=== PATIENT | female | born 1955 | race Caucasian/White ===

== ENCOUNTER 2018-12-12 04:38 | Inpatient (IN) | payer MEDICAID, MEDICARE ==
[2018-12-12] MEDS ORDERED: Scopolamine 1.5 MG Transdermal Patch TOP SCH (05:30)
[2018-12-12] MEDS ORDERED: Celecoxib 200 MG Cap PO ONE (05:30)
[2018-12-12] MEDS ORDERED: Gabapentin 300 MG Cap PO ONE (05:30)
[2018-12-12] MEDS ORDERED: Acetaminophen 500 MG Tab PO ONE (05:30)
[2018-12-12] MEDS ORDERED: cefOXitin 2 GM in Sodium Chloride 0.9% 50 ML IV ONE (06:00)
[2018-12-12] MEDS ORDERED: Dextrose 5%-Lactated Ringers 1,000 ML IV SCH (06:00)
[2018-12-12] MEDS ORDERED: cefOXitin 2 GM Vial ONE (06:55)
[2018-12-12] MEDS ORDERED: fentaNYL 250 MCG/5 ML SDV ONE ×3 (07:01→10:54)
[2018-12-12] MEDS ORDERED: Glycopyrrolate 0.2 MG/ML 5 ML MDV ONE (07:01)
[2018-12-12] MEDS ORDERED: Propofol 200 MG/20 ML SDV ONE (07:01)
[2018-12-12] MEDS ORDERED: Dexamethasone 4 MG/ML SDV ONE (07:01)
[2018-12-12] MEDS ORDERED: Rocuronium 50 MG/5 ML Vial ONE (07:01)
[2018-12-12] MEDS ORDERED: Ondansetron 4 MG/2 ML SDV ONE (07:01)
[2018-12-12] MEDS ORDERED: Neostigmine Methylsulfate 1 MG/ML 5 ML Syringe ONE (07:01)
[2018-12-12] MEDS ORDERED: Succinylcholine 200 MG/10 ML MDV ONE (07:01)
[2018-12-12] MEDS ORDERED: Lactated Ringers 1,000 ML ONE (07:02)
[2018-12-12] MEDS ORDERED: Lidocaine 0.4%/D5W 2 GM/500 ML BAG IV SCH (07:15)
[2018-12-12] MEDS ORDERED: Ketamine 50 MG in Sodium Chloride 0.9% 49.5 ML IV SCH (07:15)
[2018-12-12] MEDS ORDERED: Lidocaine 2% 100 MG/5 ML Syringe IVPUSH SCH (07:15)
[2018-12-12] MEDS ORDERED: Ketamine 500 MG/5 ML MDV IV SCH (07:15)
[2018-12-12 10:10] LABS: HEMOGLOBIN A1C 7.2 % (4.5-6.2)
[2018-12-12] MEDS ORDERED: fentaNYL 100 MCG/2 ML SDV IVPUSH ONE (11:56)
[2018-12-12] MEDS ORDERED: hydrOXYzine HCl 100 MG/2 ML SDV IM ONE (11:56)
[2018-12-12] MEDS ORDERED: 50% Dextrose in Water 50 ML Syringe IVPUSH PRN (12:11)
[2018-12-12] MEDS ORDERED: HYDROmorphone 0.5 MG/0.5 ML Syringe IVPUSH PRN (12:11)
[2018-12-12] MEDS ORDERED: Glucagon,Human Recombinant 1 MG Vial IM PRN (12:11)
[2018-12-12] MEDS ORDERED: Labetalol 20 MG/4 ML Syringe IVPUSH PRN (12:11)
[2018-12-12] MEDS ORDERED: HYDROmorphone 1 MG/ML Syringe IV PRN (12:11)
[2018-12-12] MEDS ORDERED: diphenhydrAMINE 50 MG/ML SDV IVPUSH PRN (12:11)
[2018-12-12] MEDS ORDERED: Insulin Lispro 100 Unit/ML 3 ML KwikPen SUBCUT PRN (12:11)
[2018-12-12] MEDS ORDERED: hydrOXYzine HCl 100 MG/2 ML SDV IM PRN (12:11)
[2018-12-12] MEDS ORDERED: Naloxone 0.4 MG/ML SDV IV ONE (13:00)
[2018-12-12] MEDS: Gabapentin 250 MG/5 ML Solution ML 470 ML Bottle PO SCH ×2 (15:53→20:52)
[2018-12-12] MEDS: Acetaminophen Soln 650 MG/20.3 ML UD Cup PO SCH ×2 (15:53→22:19)
[2018-12-12] MEDS: Pantoprazole 40 MG Vial IVPUSH SCH (15:53)
[2018-12-12] MEDS: cefOXitin 2 GM in Sodium Chloride 0.9% 50 ML IV SCH ×2 (15:53→22:22)
[2018-12-12] MEDS: Lactated Ringers 1,000 ML IV SCH (18:29)
[2018-12-12] MEDS: Dextrose 5%-Lactated Ringers 1,000 ML IV SCH (18:29)
[2018-12-12] MEDS: MVI, Adult with Vitamin K 10 ML, Thiamine 200 MG, Chromium/Copper/Mang/Selen/Zn 1 ML in... IV SCH ×4 (18:30)
[2018-12-12] MEDS: Heparin Sodium 5,000 Units/ML Vial SUBCUT SCH (18:31)
[2018-12-12] MEDS: Ondansetron 4 MG/2 ML SDV IVPUSH PRN ×2 (18:37→21:15)
[2018-12-12] MEDS: Metoclopramide 10 MG/2 ML SDV IVPUSH PRN (22:10)
[2018-12-13] MEDS: Dextrose 5%-Lactated Ringers 1,000 ML IV SCH (01:54)
[2018-12-13] MEDS ORDERED: Iopamidol 612 MG/ML 50 ML SDV PO ONE (02:06)
[2018-12-13] MEDS: Ondansetron 4 MG/2 ML SDV IVPUSH PRN (02:49)
[2018-12-13] MEDS: cefOXitin 2 GM in Sodium Chloride 0.9% 50 ML IV SCH ×3 (03:20→16:43)
[2018-12-13] MEDS: Acetaminophen Soln 650 MG/20.3 ML UD Cup PO SCH ×2 (03:21→04:07)
[2018-12-13] MEDS: Metoclopramide 10 MG/2 ML SDV IVPUSH PRN (03:29)
--- NOTE | 2018-12-13 03:46 | CRLCR ---
Indication: Nandini-en-Y gastric bypass Technique: KUB 2 view obtained after administration of 50 cc oral Isovue-300 Comparison: None Findings/Impression: : Two films centered on the mid abdomen were obtained and demonstrate contrast material within the gastric pouch and small bowel. No evidence for oral contrast leak. A BOB drain projects in the left upper quadrant. Nonspecific bowel gas pattern. Dictated by Sudha Mariee MD @ Dec 13 2018 3:41AM Signed by Dr. Sudha Mariee @ Dec 13 2018 3:43AM
[2018-12-13] MEDS: Lactated Ringers 1,000 ML IV SCH (05:11)
[2018-12-13] MEDS: Heparin Sodium 5,000 Units/ML Vial SUBCUT SCH ×2 (05:14→18:06)
[2018-12-13] MEDS ORDERED: Ondansetron 4 MG Tab.DIS PO PRN (07:33)
[2018-12-13] MEDS ORDERED: Calcium Carbonate 500 MG Tab.Chew PO PRN (07:35)
--- NOTE | 2018-12-13 07:39 | OR ---
DATE OF PROCEDURE: 12/12/2018 SURGEON: Jason Priest MD PREOPERATIVE DIAGNOSIS: Morbid obesity. POSTOPERATIVE DIAGNOSES: 1. Morbid obesity. 2. Marked hepatomegaly. 3. Extreme thickening of omentum and mesentery limiting small bowel mobility. 4. Paraesophageal diaphragmatic hernia. 5. Mediastinal lipoma. OPERATIVE PROCEDURES: Diagnostic laparoscopy with: 1. Laparoscopic Nandini-en-Y gastric bypass with long limb gastroenterostomy (57462). 2. Issa-Cut needle liver biopsy (58510). 3. Small bowel resection to facilitate adequate mobility of the jejunojejunostomy (31570). 4. Repair of paraesophageal diaphragmatic hernia (84669). 5. Excision of mediastinal lipoma (40930). ANESTHESIA: General. PERSONNEL RESEARCH SCIENTIST: Julieta Zamudio PA-C. INDICATIONS FOR PROCEDURE: This is a 63-year-old female presenting with longstanding morbid obesity and increasingly significant comorbidities. After preoperative evaluation and discussion, she wished to proceed with a gastric bypass procedure. Potential risks including bleeding, infection, leaks from various GI tract closures, problems with bowel obstruction over time, as well as possibility of cardiopulmonary, septic, or hemorrhagic complications leading to were discussed, and the patient wishes to proceed. DETAILS OF PROCEDURE: The patient was taken to the operating room and placed in a supine position. After general endotracheal anesthesia was induced, she was converted to a lithotomy position and the abdomen prepped and draped. At 15 cm inferior and 5 cm left of xiphoid process, a transverse incision was made and the peritoneal cavity entered under direct vision with an Optiview trocar and inflated to 15 mmHg pressure with CO2. Laparoscope was reinserted. Bilateral transversus abdominis plane blocks were placed followed by 5 additional trocars. The patient was noted to have marked hepatomegaly and Issa-Cut needle liver biopsies were obtained from left lobe of liver. Minimal bleeding from biopsy sites was controlled with electrocautery. At this point, the omentum was retracted upward. This was noted to be strikingly thickened. This was eventually divided down to the level of the transverse colon and then away from the transverse colon for a total length of around 8 cm to facilitate mobility of the small bowel Nandini limb up to the pouch. The small bowel was then identified at the ligament of Treitz and traced out to 100 cm distal. At that point, the small bowel was noted to be strikingly immobile, also related to the marked thickening of the mesentery. After the initial division of the small bowel at the 100 cm point, roughly 12 cm of the biliopancreatic limb was then further resected by means of additional SMITA firing with the mesentery being divided with Harmonic scalpel. This would allow then to have marked mobility of the jejunojejunostomy. The small bowel was then traced out an additional 180 cm with [id number] enteroenterostomy was accomplished with internal firing of the Endo-SMITA 60 mm stapler. Common opening was then closed transversely with the same stapler, and the angles anastomosed and the mesenteric defect approximated with some 0 Ethibond suture, along with fibrin sealant. The divided end of the Nandini limb was then from the mesentery for a few centimeters, which allowed an antecolic positioning of the Nandini limb up to the area of the diaphragm and esophagogastric junction with limited amount of tension. The liver was then retracted anteriorly, and the patient was noted to have a moderate-sized paraesophageal diaphragmatic hernia with prolapse of some perigastric fat and fundus in a plane anterior to the course of the esophagus. This was reduced and the peritoneum overlying was incised and reflected downward. During the course of the dissection of the crura, the mediastinal lipoma was encountered which was excised, it was roughly the size of a ping-pong ball. The diaphragmatic hernia was then repaired with 0 Ethibond sutures, reinforced with PTFE pledgets in the anterior plane. Gastrointestinal catheter was then inflated to 15 mL and pulled up snugly against the EG junction. Gastric wall over the apex of the balloon was then marked with electrocautery and balloon catheter deflated and pulled up from the esophagus. The lesser omental tissue was then divided, allowing dissection behind the stomach, and the pouch formation was initiated with a transverse firing of the SMITA stapler at the level of the cauterized juan carlos in the gastric cardia. The pouch was then completed with additional firings of the SMITA staplers up to and through the angle of His. Upon completion of the pouch, both staple lines appeared to be intact. The anvil of a 25 mm EEA stapler was attached to [place] sump type tube and was taken out through a small opening in the gastric pouch. This allowed the anvil to be pulled down within the gastric pouch as well. The divided end of the Nandini limb was then opened and main body of the EEA stapler passed several centimeters into the lumen of small bowel, brought up the anvil and united with it, thus creating the gastrojejunostomy. Upon removal of stapler, double donuts of mucosa were noted within it. The small bowel was closed off with a vascular staple line. Gastrojejunostomy was reinforced with some 3-0 Vicryl seromuscular stitch, along with fibrin sealant. A leak test was accomplished with injection of 120 mL of air in the gastric pouch while it was submerged with cefoxitin-containing saline solution. A single Van-Jalloh drain was taken out through the left lateral trocar site and positioned adjacent to the gastrojejunostomy and from there up into the splenic fossa. The trocars were sequentially removed and the skin closed with 4-0 Vicryl skin stitch, which was also used to affix the drain. The patient was taken to the recovery room in satisfactory condition. Physician front end assistant, Julieta Zamudio, played an essential role in assisting in this case helping to position the patient, retract structures as needed as well as suturing, cutting sutures when indicated. Her presence improved patient safety and decreased operative time. Jason Priest MD /[id number]
[2018-12-13] MEDS: Acetaminophen 1,000 MG in Premix Bag 1 BAG IV SCH ×3 (09:41→19:32)
[2018-12-13] MEDS: Celecoxib 200 MG Cap PO SCH (09:41)
[2018-12-13] MEDS: Aspirin 81 MG Tab.EC PO SCH (09:43)
[2018-12-13] MEDS: amLODIPine 5 MG Tab PO SCH (09:43)
[2018-12-13] MEDS: Lisinopril 10 MG Tab PO SCH (09:43)
[2018-12-13] MEDS: SCOPOLAMINE PATCH CHECK TOP SCH (09:44)
--- NOTE | 2018-12-13 10:52 | PN ---
DATE OF SERVICE: 12/13/2018 SUBJECTIVE: Ramos is postop day 1. She had difficulty with nausea during the night. Her lidocaine was discontinued. She has a scopolamine patch on. She was given Reglan scheduled and Zofran. The nausea started after she took gabapentin. Blood sugars have been 188 and this morning was 183. REVIEW OF SYSTEMS: Remainder of review of systems negative for any pertinent positives and negatives. OBJECTIVE: GENERAL: Ramos Gurrola is a pleasant 63-year-old female. She is alert and orientated. VITAL SIGNS: TPR is 97.4, 71, 18. Blood pressure 166/52. HEENT: Negative. NECK: Supple. HEART: Regular rate and rhythm. LUNGS: Clear. ABDOMEN: Dressing dry and intact. Abdominal binder is on. BOB drain put out 280 mL of a pink serosanguineous drainage. EXTREMITIES: SCDs are on and there is no peripheral edema. ASSESSMENT: Diagnostic laparoscopy with: 1. Laparoscopic Nandini-en-Y gastric bypass surgery with long limb gastroenterostomy. 2. Issa-Cut needle liver biopsy. 3. Small bowel resection to facilitate adequate motility of the jejunojejunostomy. 4. Excision of mediastinal lipoma. Surgeon, Jason Priest MD. Date of surgery, 12/12/2018. PLAN: 1. Decrease IV to 100 mL per hour of lactated Ringer's. 2. Discontinue gabapentin. 3. IV Tylenol 1000 mg q.6 hours scheduled today. 4. Tums two q.2 hours p.r.n. heartburn. 5. Restart Norvasc (amlodipine). 6. Discontinue D5LR. 7. Good pulmonary toilet. 8. May shower. 9. We will evaluate p.r.n. or in a.m. Julieta Zamudio PA-C /[id number]
[2018-12-13] MEDS: MVI, Adult with Vitamin K 10 ML, Thiamine 200 MG, Chromium/Copper/Mang/Selen/Zn 1 ML in... IV SCH ×4 (16:42)
[2018-12-13] MEDS: Pantoprazole 40 MG Vial IVPUSH SCH (16:46)
[2018-12-14] MEDS: Acetaminophen 1,000 MG in Premix Bag 1 BAG IV SCH (02:14)
[2018-12-14] MEDS: Lactated Ringers 1,000 ML IV SCH (02:22)
[2018-12-14] MEDS: Heparin Sodium 5,000 Units/ML Vial SUBCUT SCH ×2 (06:06→18:09)
[2018-12-14] MEDS ORDERED: Lactated Ringers 1,000 ML IV SCH (06:59)
[2018-12-14] MEDS: Acetaminophen 160 MG Tab,Disintegrating PO SCH ×5 (08:03→22:26)
[2018-12-14] MEDS: Celecoxib 200 MG Cap PO SCH (08:05)
[2018-12-14] MEDS ORDERED: Cyanocobalamin (Vitamin B12) 1,000 MCG/ML SDV IM ONE (09:00)
[2018-12-14] MEDS: amLODIPine 5 MG Tab PO SCH (09:58)
[2018-12-14] MEDS: Lisinopril 10 MG Tab PO SCH (09:59)
[2018-12-14] MEDS: Aspirin 81 MG Tab.EC PO SCH (10:13)
[2018-12-14] MEDS: SCOPOLAMINE PATCH CHECK TOP SCH (10:15)
--- NOTE | 2018-12-14 13:52 | PN ---
DATE OF SERVICE: 12/14/2018 SUBJECTIVE: Ramos is less sleepy today. She has been reporting no nausea. Oral intake was 440. Urine output 2300. BOB drain put out 115 of a light pink drainage. She is passing some flatus and feels like she "might be a little bit more awake today." REVIEW OF SYSTEMS: Remainder of review of systems negative for any pertinent positives and negatives. OBJECTIVE: GENERAL: Ramos is a pleasant 63-year-old female. She does look like she is feeling better, more alert. VITAL SIGNS: TPR is 97.7, 80, 20. Blood pressure 163/71. HEENT: Negative. NECK: Supple. HEART: Regular rate and rhythm. LUNGS: Clear. ABDOMEN: Dressing is dry and intact. Abdominal binder is on. EXTREMITIES: Without peripheral edema. ASSESSMENT: Diagnostic laparoscopy with: 1. Laparoscopic Nandini-en-Y gastric bypass surgery with long limb gastroenterostomy. 2. Issa-Cut needle liver biopsy. 3. Small bowel resection to facilitate adequate motility of the jejunojejunostomy. 4. Excision of mediastinal lipoma. Surgeon, Jason Priest MD. Date of surgery, 12/12/2018. PLAN: 1. Communication order, 3 med cups per hour, 1 per 20 minutes, record at bedside. 2. Discontinue scopolamine patch due to sleepiness. 3. Step 2 gastric bypass diet without cereal. 4. Decrease IV to TKO. 5. Tylenol 625 mg p.o. q.6 hours scheduled, may have chewable or the tablets. 6. Blood sugars 127 and 140. She is currently on no medications for diabetes. 7. We will evaluate p.r.n. or in a.m. Julieta Zaumdio PA-C /[id number]
[2018-12-14] MEDS: MVI, Adult with Vitamin K 10 ML, Thiamine 200 MG, Chromium/Copper/Mang/Selen/Zn 1 ML in... IV SCH ×4 (16:47)
[2018-12-14] MEDS: Pantoprazole 40 MG Vial IVPUSH SCH (16:53)
[2018-12-14] MEDS ORDERED: Pantoprazole 40 MG Delayed-Release Granules 1 Packet PO SCH (18:00)
[2018-12-15] MEDS: Acetaminophen 160 MG Tab,Disintegrating PO SCH ×2 (02:34→06:28)
[2018-12-15] MEDS: Heparin Sodium 5,000 Units/ML Vial SUBCUT SCH (06:23)
[2018-12-15] MEDS: Celecoxib 200 MG Cap PO SCH (07:56)
[2018-12-15] MEDS: Aspirin 81 MG Tab.EC PO SCH (08:00)
[2018-12-15] MEDS: amLODIPine 5 MG Tab PO SCH (08:01)
[2018-12-15] MEDS: Lisinopril 10 MG Tab PO SCH (08:01)
[2018-12-15] MEDS ORDERED: Magnesium Hydroxide 400 MG/5 ML Susp 30 ML Cup PO ONE (09:30)
--- NOTE | 2018-12-15 13:41 | DISCH ---
ADMISSION DIAGNOSES: 1. Morbid obesity, BMI 43.7. 2. Diabetes type 2. 3. Irritable bowel syndrome. 4. Essential hypertension. 5. Dyslipidemia. 6. Elevated triglycerides. 7. Partial epilepsy and seizures. DISCHARGE DIAGNOSES: Diagnostic laparoscopy with: 1. Laparoscopic Nandini-en-Y gastric bypass surgery with long limb gastroenterostomy. 2. Issa-Cut needle liver biopsy. 3. Small bowel resection to facilitate adequate mobility of the jejunojejunostomy. 4. Repair of paraesophageal diaphragmatic hernia. 5. Excision of mediastinal lipoma. POSTOPERATIVE DIAGNOSES: 1. Morbid obesity. 2. Marked hepatomegaly. 3. Extreme thickening of omentum and mesentery limiting small bowel mobility. 4. Paraesophageal diaphragmatic hernia. 5. Mediastinal lipoma. HISTORY: Ramos Gurrola is a 63-year-old female, presenting with longstanding morbid obesity and increasing comorbidities. After preoperative evaluation and discussion of possible risks and possible complications, she wished to proceed with surgical procedure. HOSPITAL COURSE: Ramos had her surgery on 12/12/2018. On postoperative day #1, she was extremely nauseated, the lidocaine was discontinued, and in addition to scopolamine patch, she was started on Reglan IV scheduled and continued with the Zofran. She also was quite sleepy. On postoperative day #1, her upper GI was normal. She continued with the scheduled anti-nausea medication. Blood sugars were 188 and 183. On postop day #2, the nausea had ceased. She was able to get in 440 mL of a clear liquid and she was passing some flatus. She was feeling better. She was started on a step 2 gastric bypass diet without cereal. She was given the 3 med cups to drink, 1 per 20 minutes and record at bedside. Her scopolamine patch was discontinued due to sleepiness. She became more wakeful as the day went on. She was able to get in adequate fluids 970. She was up ambulating and she received dietary instruction, vitamin B12 1000 mcg injection, and she was tolerating all of her medications. She was able to be discharged to home without any complications. PHYSICAL EXAMINATION: GENERAL: Ramos is a pleasant 63-year-old female. VITAL SIGNS: Height is 5 feet 5 inches, weight is 262 pounds, BMI is 43. TPR is 96.9, 63, 18, blood pressure 160/65. HEENT: Negative. NECK: Supple. HEART: Regular rate and rhythm. LUNGS: Clear. ABDOMEN: At time of rounds, the patient's BOB drain was still intact, it will be removed, and 4 x 4 will be placed over it. Her trocar sutured incisions look good. There is no redness or inflammation. Abdominal binder has been on. EXTREMITIES: Without peripheral edema. DISPOSITION: Discharged to home. CONDITION: Stable and improving. FOLLOWUP: Followup appointment with Julieta Zamudio PA-C, at [facility] on 12/20/2018 at 9 a.m. HOME MEDICATIONS: 1. Celebrex 200 mg p.o. daily for 14 days, start tomorrow. 2. Two doses of milk of magnesia, 30 mL were sent home with the patient. She is to take one when she gets home and repeat in a.m. if needed. 3. Rx Zofran ODT 4 mg every 4 hours p.r.n. nausea, #30. She is to resume home medication of: 1. Lisinopril 30 mg daily. 2. Aspirin 81 mg daily. 3. Norvasc 5 mg oral daily. DISCHARGE INSTRUCTIONS: Diet after discharge: Step 2 gastric bypass diet until 12/27/2018. Drink 8 to 10 glasses of water a day. ACTIVITY: No lifting greater than 10 pounds for 2 weeks. Other activity: Walk at least 6 times daily inside your home. Driving: Do not drive for 1 week. Shower/bathing: May shower. Notify provider if any fever, increased pain, nausea, vomiting. Keep site clean and dry. Wear abdominal binder for 2 weeks and then as tolerated. SPECIAL INSTRUCTIONS: 1. Use incentive spirometer 10 times every hour while awake. 2. Check blood sugars twice a day and bring results in to clinic appointment. 3. Keep record of protein and fluid intake and bring to clinic appointment.
== END 2018-12-15 09:35 | disposition home or self-care (01) | DRG 621 ==
LOC: JP.SDS 04:38 → JP.MS 04:38 → EDSTATUS 07:15 → JP.MS 14:04
PROVIDERS: ADMIT Surgery; ATTEND Surgery
PROC: 0D164ZA Bypass Stomach to Jejunum, Percutaneous Endoscopic Approach (ICD-10-PCS; principal; 2018-12-12)
PROC: 0FB24ZX Excision of Left Lobe Liver, Percutaneous Endoscopic Approach, Diagnostic (ICD-10-PCS; 2018-12-12)
PROC: 0BQT4ZZ Repair Diaphragm, Percutaneous Endoscopic Approach (ICD-10-PCS; 2018-12-12)
PROC: 0D1A4ZA Bypass Jejunum to Jejunum, Percutaneous Endoscopic Approach (ICD-10-PCS; 2018-12-12)
PROC: 0JB63ZZ Excision of Chest Subcutaneous Tissue and Fascia, Percutaneous Approach (ICD-10-PCS; 2018-12-12)
PROC: 0DB84ZZ Excision of Small Intestine, Percutaneous Endoscopic Approach (ICD-10-PCS; 2018-12-12)
DX: E66.01 Morbid (severe) obesity due to excess calories (principal); R16.0 Hepatomegaly, not elsewhere classified; K44.9 Diaphragmatic hernia without obstruction or gangrene; D17.4 Benign lipomatous neoplasm of intrathoracic organs; Z68.41 Body mass index [BMI] 40.0-44.9, adult; E11.9 Type 2 diabetes mellitus without complications; E78.5 Hyperlipidemia, unspecified; E78.2 Mixed hyperlipidemia; I10 Essential (primary) hypertension; G40.909 Epilepsy, unspecified, not intractable, without status epilepticus; Z98.49 Cataract extraction status, unspecified eye; Z79.82 Long term (current) use of aspirin; Z79.899 Other long term (current) drug therapy
CPT/HCPCS: 36415; 74240; 80053; 82962; 83036; 83735; 83880; 84100; 85027; 86850; 86900; 86901; 88304; 88307; 88313; 94762; A9270-GY; C9113; J0131; J0171; J0330; J0694; J1100; J1170; J1644; J1815; J2001; J2310; J2405; J2704; J2710; J2765; J2795; J3010; J3410; J3411; J3420; J3490; J7042; J7050; J7120; Q9967